=== PATIENT | male | born 1950 | race Caucasian/White ===

== ENCOUNTER → 2019-02-19 | Outpatient (CLI) | payer MEDICARE, OTHER ==
[~2019-02-19] MED LIST: DOBUTamine DRIP 250 ML IV SCH; NS IV 1000 ML 1,000 ML IV ONE; NS IV 1000 ML 1,000 ML ONE
--- NOTE | 2019-02-19 10:35 | NUR ---
After explaining procedures with patient the consent forms were signed for Dobutamine stress test and the use of definity. Pt denied any questions at that time. Dr. Pickens was paged to start procedure.
[2019-02-19 10:45] VITALS: BP 122/59
[2019-02-19 10:55] VITALS: BP 119/58
--- NOTE | 2019-02-19 10:55 | NUR ---
Definity was diluted in 9cc normal saline slush. Pt was given 3 cc slow push dose for pre images per Dr. Cervantes orders. Pt then was given 3 cc Definity slow push at peak exercise and then again at post imaging. Pt tolerated procedure well and vital signs remained stable. Pt was left on monitor for post recovery for a total of 9 mins.
[2019-02-19 10:58] VITALS: BP 120/59
== END ==
LOC: CARD 08:56 → MERGE 08:56
PROVIDERS: ATTEND Nurse Practitioner Family
DX: R60.9 Edema, unspecified (principal)